=== PATIENT | female | born 1955 | race Caucasian/White ===

== ENCOUNTER 2025-02-23 08:31 | Inpatient (IN) | payer MEDICARE, OTHER, SELFPAY ==
--- NOTE | 2025-02-04 14:09 | CM ---
CM reviewed medical records.
Demographics: confirmed
Living situation: Patient lives alone, but will have multiple family members available to help.
Support Person Post Operatively: multiple family members
History of
VN: No
SNF: No
Outpatient: Pending surgical clearance
Has patient purchased required equipment: none, needed
PCP: active
Pharmacy: [facility]
Post Operative Discharge Plan: Outpatient PT when medically cleared vs. home OT pending OT evaluation.
[2025-02-12 10:58] LABS: Hematocrit 39.8 % (37.0-47.0); Hemoglobin 13.6 g/dL (12.0-16.0); Mean Corp Hgb Conc. 34.2 g/dL (33.0-37.0); Mean Corpuscular Volume 88.4 fL (81.0-99.0); Platelet Count 377 10^3/uL (130-400); Red Cell Dist. Width 12.6 % (11.5-14.5)
[2025-02-12 11:22] LABS: ALT (SGPT) 30 U/L (0-35); AST (SGOT) 35 U/L (14-36); Albumin 4.6 g/dl (3.5-5.0); Alkaline Phosphatase 69 U/L (38-126); Blood Urea Nitrogen 17 mg/dl (7-17); Calcium 9.6 mg/dl (8.4-10.2); Carbon Dioxide 27 mmol/L (22-30); Chloride 102 mmol/L (98-107); Glucose 89 mg/dl (70-99); Potassium 4.9 mmol/L (3.5-5.1); Sodium 136 mmol/L (135-145); Total Protein 7.2 g/dl (6.3-8.2); eGFR > 60.00
[2025-02-12 11:32] LABS: Glycohemoglobin (HgbA1c) 5.5 % (4.0-5.6)
[2025-02-12 14:10] VITALS: BMI 40.6
--- NOTE | 2025-02-15 11:24 | CM ---
Patient call this CM updating her allergies stating that she is allergic to Celebrex. CM updated PAT RN to update allergies.
Patient further stated that she did not have a good experience with [facility]. CM updated Mima Linton RN with patient's concerns.
[2025-02-16 12:24] VITALS: BMI 40.6
[2025-02-23] VITALS (9 sets, daily range): BP systolic 101–163; BP diastolic 65–88; PULSE 86; O2SAT 94
[2025-02-23] MEDS: TYLENOL 1000 MG PO (09:28)
[2025-02-23] MEDS: NORMOSOL-R/PLASMALYTE-A 1000 IV ×2 (09:30→14:45)
--- NOTE | 2025-02-23 10:34 | W.PN.UPDATE ---
Update Note
Progress Note Update
L shoulder OA s/p L Reverse TSA w/ Dr Delgado 02/23/25
- s/p b/l TKA and b/l IVELISSE at outside facilities
DVT prophylaxis - ASA, b/l venous foot pumps
HTN - + parameters - monitor BP
EDGAR, noncompliant with device - monitor O2
- IS
- Decadron to aid in lung perfusion
- Add supplemental O2 HS
GERD/hiatal hernia - continue PPI therapy
Spinal stenosis with radiculopathy - add Gabapentin HS
Morbid obesity, BMI 40.6 - given elevated BMI, would benefit from abx prophylaxis upon d/c
HLD
MVP
Palpitations
RLS
Thyroid nodule, benign, status post partial thyroidectomy
Post-surgical hypothyroidism
Eczema
Anxiety
H/o thrombocytosis
IFG
--- NOTE | 2025-02-23 13:35 | PTCARENOTE ---
Pt arrived to 2S in bed. Full assessment completed. L shoulder DSG C/D/I. Pt c/o mild numbness and tingling to L hand, neurovascular assessment otherwise WDL. IVF initiated. Nasal cannula maintained. Bed locked and in the lowest position, safety
maintained. Oriented to room and call yan.
[2025-02-23] MEDS: TYLENOL 650 MG PO ×3 (14:46→23:50)
[2025-02-23] MEDS: PROTONIX 20 MG PO (14:46)
[2025-02-23] MEDS: VITAMIN C 500 MG PO (14:48)
[2025-02-23] MEDS: ZYRTEC 10 MG PO (18:24)
[2025-02-23] MEDS: ASPIRIN 325 MG PO (18:24)
[2025-02-23] MEDS: ANCEF 5 IV (19:48)
[2025-02-23] MEDS: BACTROBAN 2% OINTMENT 1 APPLIC NASAL (19:48)
[2025-02-23] MEDS: COLACE 100 MG PO (19:48)
[2025-02-23] MEDS: DECADRON 4 MG PO (19:49)
[2025-02-23] MEDS: SENOKOT PO (19:49)
[2025-02-23] MEDS: NEURONTIN 300 MG PO (21:58)
[2025-02-23] MEDS: MURO 5% OPHTHALMIC OINTMENT 1 APPLIC BOTH EYES (21:58)
[2025-02-24 03:10] VITALS: BP 118/62
[2025-02-24] MEDS: ANCEF 5 IV (04:02)
[2025-02-24] MEDS: TYLENOL PO ×2 (05:00→11:57)
[2025-02-24] MEDS: SYNTHROID 75 MCG PO (05:36)
[2025-02-24 07:25] VITALS: BP 123/70
[2025-02-24] MEDS: TYLENOL 650 MG PO (08:07)
[2025-02-24] MEDS: COLACE 100 MG PO (08:07)
[2025-02-24] MEDS: VITAMIN C 500 MG PO (08:08)
[2025-02-24] MEDS: PROTONIX 20 MG PO (08:08)
[2025-02-24] MEDS: ASPIRIN 325 MG PO (08:08)
[2025-02-24] MEDS: BACTROBAN 2% OINTMENT 1 APPLIC NASAL (08:08)
[2025-02-24] MEDS: TENORMIN 50 MG PO (08:08)
[2025-02-24] MEDS: SENOKOT 17.2 MG PO (08:08)
[2025-02-24] MEDS: DECADRON 4 MG PO (08:08)
[2025-02-24] MEDS: MURO 128/ADSORBONAC 5% EYE DROPS 1 DROP BOTH EYES (08:09)
--- NOTE | 2025-02-24 08:55 | W.PN.ORTHO ---
Today's Communication / Plan
-
Await OT recs.
D/c later today if clinically stable. Son to stay w/ pt first few days after surgery.
Assessment
.
Distal Motor Intact: Yes
Dressing:
Clean, dry and intact.
Assessment:
L shoulder OA s/p L Reverse TSA w/ Dr Delgado 02/23/25
- s/p b/l TKA and b/l IVELISSE at outside facilities
DVT prophylaxis - ASA, b/l venous foot pumps
HTN - + parameters - BPs overall stable
EDGAR, noncompliant with device - O2 stable on RA by POD 1
- IS
- Decadron to aid in lung perfusion
- Add supplemental O2 HS
GERD/hiatal hernia - continue PPI therapy
Spinal stenosis with radiculopathy - added Gabapentin HS
Morbid obesity, BMI 40.6 - given elevated BMI, would benefit from abx prophylaxis upon d/c
HLD
MVP
Palpitations
RLS
Thyroid nodule, benign, status post partial thyroidectomy
Post-surgical hypothyroidism
Eczema
Anxiety
H/o thrombocytosis
IFG
Plan
.
Surgery / Date: L Reverse TSA w/ Dr Delgado 02/23/25
DVT Prophylaxis: Aspirin
Activity:
Out of bed.
PT/OT
Discharge Plan: Home
Subjective
.
.:
Patient resting comfortably in her chair.
L shoulder pain tolerable w/ minimal pain meds overnight.
Denies any new significant complaints. Feels well.
Eager for potential d/c today.
Vital Signs and Labs
.
Vital Signs and Labs:
Lab Results
02/12/25 10:25
02/12/25 10:25
Temp Pulse Resp BP Pulse Ox
97.6 F 104 16 123/70 97
02/24/25 03:10 10/08/25 08:08 02/24/25 03:10 02/24/25 08:08 02/24/25 03:10
Non-invasive Hgb result: 13.4
Physical Exam
-
HEENT: No pallor, cyanosis, or jaundice. Throat clear.
NECK: Supple. No JVD.
RESPIRATORY: Lungs clear to auscultation.
CVS: S1, S2 normal. RRR.�
ABDOMEN: Soft, non-tender. No distension.
EXTREMITIES: + LUE sling. Good graduate rn/radial pulses b/l. Able to wiggle fingers b/l. B/l LE strength equal. No calf pain with palpation/dorsiflexion. Calves soft.
REPAIR WELDER: AOx3. No focal deficits. clocksmith grossly intact
--- NOTE | 2025-02-24 08:56 | CM ---
CM met with patient in room. Patient is looking forward to discharge.
PLAN: home no needs.
--- NOTE | 2025-02-24 09:07 | W.DS.TRANS ---
DC Summary - Condominium Manager
-
Discharge Instructions:
Discharge Diagnosis/Procedures L shoulder OA s/p L Reverse TSA w/ Dr Delgado 02/23/
25
Diet Regular
Additional Diets Adequate hydration, minimize opioids, and wear
TEDs stockings to prevent low blood pressure/
dizziness.
Activity As tolerated
Additional Activity Non-weightbearing left upper extremity
Driving Restrictions Not until seen by your Dr
Bathing Restrictions OK to Shower
Wound Care Leave dressing on until seen by surgeon's office
for follow-up.
Instructions:
Stand-Alone Forms: Total Shoulder Replacement D/C
Changes to Home Medications: Yes
Discharge Medications:
DC Medications w/original date entered in [employer]
Sodium Chloride Eye Drops 1 drp BOTH EYES DAILY 02/10/25
Sodium Chloride Eye Gel 1 applic BOTH EYES HS 02/10/25
amoxicillin 500 mg capsule 2,000 mg PO PRN PRN dental work 02/10/25
ascorbic acid (vitamin C) 500 mg tablet (Vitamin C) 500 mg PO DAILY 02/10/25
atenolol 50 mg tablet 50 mg PO DAILY 02/10/25
calcium ER 600 mg (as carb,cit)-D3 12.5 mcg (500 unit) tablet, ext.rel (Citracal-D3 Slow Release) 2 tab PO DAILY 02/10/25
cetirizine 10 mg tablet (Zyrtec) 10 mg PO QPM 02/10/25
fluticasone propionate 50 mcg/actuation nasal spray,suspension 1 spray intranasal DAILY 02/10/25
levothyroxine 50 mcg tablet 50 mcg PO Q48H 02/10/25
levothyroxine 75 mcg tablet 75 mcg PO Q48H 02/10/25
multivitamin 1 tab PO DAILY 02/10/25
omeprazole 20 mg capsule,delayed release 20 mg PO DAILY 02/10/25
vitamin B complex 1 cap PO DAILY 02/10/25
mupirocin 2 % topical ointment 1 applic topical BID infection prevention #1 tube 02/11/25
dexamethasone 4 mg tablet 4 mg PO BID inflammation #6 tabs 02/12/25
doxycycline hyclate 100 mg capsule 100 mg PO BID infection prevention #10 caps 02/12/25
gabapentin 300 mg capsule 300 mg PO HS sleep/pain #10 caps 02/12/25
ondansetron 4 mg disintegrating tablet 4 mg PO Q6H PRN n/v #20 tabs 02/12/25
oxycodone 5 mg tablet 5 mg PO Q6H PRN 1 tab moderate pain, 2 tabs severe pain #30 tabs 02/12/25
acetaminophen 650 mg tablet,extended release 1,300 mg (2 x 650 mg) PO Q8H #1 tab 02/24/25
aspirin 325 mg tablet 325 mg PO DAILY #30 tabs 02/24/25
docusate sodium 100 mg capsule 100 mg PO BID #30 caps 02/24/25
lactobacillus combination no.4 3 billion cell capsule (Probiotic) 3,000 mmu cells PO DAILY #5 caps 02/24/25
magnesium hydroxide 400 mg/5 mL oral suspension (Milk of Magnesia) 30 ml PO HSPRN PRN constipation #355 mL 02/24/25
sennosides 8.6 mg tablet (Luana-kenji) 17.2 mg (2 x 8.6 mg) PO BID #30 tabs 02/24/25
Home Medication Changes
dexamethasone 4 mg tablet 4 mg PO BID inflammation #6 tabs 02/12/25
doxycycline hyclate 100 mg capsule 100 mg PO BID infection prevention #10 caps 02/12/25
gabapentin 300 mg capsule 300 mg PO HS sleep/pain #10 caps 02/12/25
ondansetron 4 mg disintegrating tablet 4 mg PO Q6H PRN n/v #20 tabs 02/12/25
oxycodone 5 mg tablet 5 mg PO Q6H PRN 1 tab moderate pain, 2 tabs severe pain #30 tabs 02/12/25
acetaminophen 650 mg tablet,extended release 1,300 mg (2 x 650 mg) PO Q8H #1 tab 02/24/25
aspirin 325 mg tablet 325 mg PO DAILY #30 tabs 02/24/25
docusate sodium 100 mg capsule 100 mg PO BID #30 caps 02/24/25
lactobacillus combination no.4 3 billion cell capsule (Probiotic) 3,000 mmu cells PO DAILY #5 caps 02/24/25
magnesium hydroxide 400 mg/5 mL oral suspension (Milk of Magnesia) 30 ml PO HSPRN PRN constipation #355 mL 02/24/25
sennosides 8.6 mg tablet (Luana-kenji) 17.2 mg (2 x 8.6 mg) PO BID #30 tabs 02/24/25
Pending Results: No
[2025-02-24 10:30] VITALS: BP 134/65; PULSE 100; O2SAT 95
[2025-02-24 11:05] VITALS: BP 101/54
[2025-02-24 11:08] VITALS: BP 101/57
== END 2025-02-24 12:15 | disposition home or self-care (01) | DRG 483 ==
LOC: 2 SOUTH 08:31
PROVIDERS: ADMITTING PHYSICIAN Specialist; FAMILY PHYSICIAN Emergency Medicine
PROC: 0RRK00Z Replacement of Left Shoulder Joint with Reverse Ball and Socket Synthetic Substitute, Open Approach (ICD-10-PCS; 2025-02-23)
DX: M19.012 Primary osteoarthritis, left shoulder (principal); Z68.41 Body mass index [BMI] 40.0-44.9, adult; G47.33 Obstructive sleep apnea (adult) (pediatric); Z91.199 Patient's noncompliance with other medical treatment and regimen due to unspecified reason; E66.01 Morbid (severe) obesity due to excess calories; I10 Essential (primary) hypertension; E78.5 Hyperlipidemia, unspecified; K21.9 Gastro-esophageal reflux disease without esophagitis; K44.9 Diaphragmatic hernia without obstruction or gangrene; D75.839 Thrombocytosis, unspecified; M48.00 Spinal stenosis, site unspecified; G25.81 Restless legs syndrome; Z88.0 Allergy status to penicillin; Z90.710 Acquired absence of both cervix and uterus; Z96.643 Presence of artificial hip joint, bilateral; Z96.653 Presence of artificial knee joint, bilateral
CPT/HCPCS: 36415; 73020; 80053; 83036; 85027; 87070; 97167; 97530; 97535; C1713; C1776